=== PATIENT | female | born 1985 | race Caucasian/White ===

== ENCOUNTER 2019-09-15 11:23 | Outpatient (CLI) | payer BC, SELFPAY ==
[2019-09-15 12:49] LABS: Influenza Control Positive
== END 2019-09-15 11:24 | disposition home or self-care (01) ==
PROVIDERS: PCP Physician Assistant; Visit Provider Physician Assistant
DX: J02.9 Acute pharyngitis, unspecified (principal); R68.89 Other general symptoms and signs
CPT/HCPCS: 87070; 87147; 87804

== ENCOUNTER 2020-06-22 06:53 | Outpatient (NON) | payer OTHER, SELFPAY ==
[2020-06-23 14:04] LABS: SARS-CoV-2 RNA PCR Positive
== END 2020-06-22 06:54 ==
LOC: ANHCOVIDDT 07:02
PROVIDERS: PCP Physician Assistant; Visit Provider Physician Assistant
DX: U07.1 COVID-19 (principal)
CPT/HCPCS: 87635; C9803; U0003

== ENCOUNTER 2024-04-04 09:39 | Outpatient (CLI) | payer OTHER, BC, SELFPAY ==
--- NOTE | ~2024-04-04 | US_ITS ---
EXAMINATION: US pelvic complete w TV INDICATION: Abnormal uterine bleeding Comparison:No prior studies for comparison. TECHNIQUE: Multiple transabdominal and endovaginal sonographic images of the pelvis performed. FINDINGS: The uterus measures 8.6 x 5 x 4.3 cm. The endometrial complex measures 10 mm. Endometrium i s heterogeneous. The right ovary measures 2.3 x 2.9 x 3.8 cm and the left ovary measures 3 x 2 x 1.8 cm. There are sm all follicles in each ovary. Normal doppler signal in both ovaries. There are follicular changes in t he ovaries, largest on the left measuring 1.9 cm and 2.5 cm in the right ovary. There is no free fluid in the pelvis. There are no abnormal masses seen on either side. IMPRESSION: 1. Small bilateral ovarian cysts measuring up to 2.5 cm in the right ovary. Reviewed, dictated and finalized at location B.
== END 2024-04-04 09:40 ==
LOC: GOSHIMG 09:40
PROVIDERS: PCP Internal Medicine; Visit Provider Nurse Practitioner Obstetrics & Gynecology
DX: N83.202 Unspecified ovarian cyst, left side (principal); N83.201 Unspecified ovarian cyst, right side; N92.0 Excessive and frequent menstruation with regular cycle; R10.11 Right upper quadrant pain
CPT/HCPCS: 76830; 76856